=== PATIENT | male | born 1975 | race Caucasian/White ===

== ENCOUNTER 2016-07-04 09:24 | Emergency (ER) | payer OTHER ==
[~2016-07-04] VITALS: Ht 182.8 cm; Wt 120.2 kg
[~2016-07-04 09:24] MED LIST: AMOXICILLIN500 MG PO; ANAPROX DS550 MG PO; ANUSOL HC30 GM PO; ATIVAN1 MG PO; CLEOCIN HCL150 MG PO; CLEOCIN150 MG PO; EES400 MG PO; FLEXERIL10 MG PO; KEFLEX500 MG PO; LOTRISONE CREAM15 GM TP; MEDROL DOSEPAK4 MG PO; MOTRIN800 MG PO; Motrin,Rufen800 MG PO; NO DAILY MEDS; PEN-VEE K500 MG PO; PHENERGAN25 M1 PO; PREDNISONE10 MG PO; ROBAXIN750 MG PO; TRAMADOL HCL50 MG PO; TYLENOL W/CODEI1 TA2 PO; ULTRAM50 MG PO; VICODIN 5/500 505 MG PO; VICODIN ES 7501 TAB PO
[2016-07-04] MEDS ORDERED: CLINDAMYCIN HC300 MG PO (09:51)
== END 2016-07-04 10:13 | disposition home or self-care (01) ==
LOC: ED 09:24
DX: L02.811 Cutaneous abscess of head [any part, except face] (principal); M54.2 Cervicalgia; K08.89 Other specified disorders of teeth and supporting structures; F41.9 Anxiety disorder, unspecified; F17.200 Nicotine dependence, unspecified, uncomplicated